=== PATIENT | male | born 1970 | race Caucasian/White ===

== ENCOUNTER 2019-11-16 10:44 | Emergency (ER) | payer SELFPAY ==
[2019-11-16] MEDS ORDERED: NAPROXEN500 MG PO (13:27)
[2019-11-16] MEDS ORDERED: FLEXERIL PO (13:27)
[2019-11-16] MEDS ORDERED: ATIVAN0.5 MG PO (13:30)
[2019-11-16 13:38] VITALS: BP 137/87
== END 2019-11-16 13:38 | disposition home or self-care (01) | DRG 552 ==
LOC: ED 10:44
DX: S13.9XXA Sprain of joints and ligaments of unspecified parts of neck, initial encounter (principal); F41.9 Anxiety disorder, unspecified; G56.03 Carpal tunnel syndrome, bilateral upper limbs; W22.09XA Striking against other stationary object, initial encounter

== ENCOUNTER 2020-02-23 10:15 | Emergency (ER) | payer SELFPAY ==
[~2020-02-23 10:15] MED LIST: ATIVAN0.5 MG PO; FLEXERIL PO; NAPROXEN500 MG PO
[2020-02-23] MEDS ORDERED: MUPIROCIN21 TOP (11:11)
[2020-02-23] MEDS ORDERED: BACTRIM DS1 TAB PO (11:11)
[2020-02-23 11:20] VITALS: BP 128/72
== END 2020-02-23 11:20 | disposition home or self-care (01) | DRG 603 ==
LOC: ED 10:15
PROC: 0H9GXZZ Drainage of Left Hand Skin, External Approach (ICD-10-PCS; principal; 2020-02-23)
DX: L02.512 Cutaneous abscess of left hand (principal); B95.62 Methicillin resistant Staphylococcus aureus infection as the cause of diseases classified elsewhere

== ENCOUNTER 2020-02-26 08:38 | Emergency (ER) | payer SELFPAY ==
[~2020-02-26 08:38] MED LIST changes: +BACTRIM DS1 TAB PO; +MUPIROCIN21 TOP
[2020-02-26] MEDS ORDERED: DOXYCYCL HYC100 M4 PO (09:11)
[2020-02-26 09:30] VITALS: BP 133/68
== END 2020-02-26 09:31 | disposition left against medical advice (07) | DRG 603 ==
LOC: ED 08:38
DX: L03.012 Cellulitis of left finger (principal); Z91.19 Patient's noncompliance with other medical treatment and regimen

== ENCOUNTER 2020-10-21 19:56 | Emergency (ER) | payer SELFPAY ==
[~2020-10-21] VITALS: Ht 177.8 cm; Wt 68.0 kg
[~2020-10-21 19:56] MED LIST changes: +DOXYCYCL HYC100 M4 PO
[2020-10-21 20:50] VITALS: BP 125/73
== END 2020-10-21 20:54 | disposition home or self-care (01) | DRG 607 ==
LOC: ED 19:56
DX: L50.9 Urticaria, unspecified (principal)